=== PATIENT | female | born 1995 | race Caucasian/White ===

== ENCOUNTER 2017-03-13 18:54 | Outpatient (CLI) | payer OTHER ==
[2017-03-13 20:09] LABS: MICROSCOPIC INDICATED
[2017-03-13] MEDS ORDERED: NITROFURANTOIN (MACROBID) 100 MG CAPSULE PO ONE (21:30)
[2017-03-13] MEDS ORDERED: NITROFURANTOIN (MACROBID) 100 MG CAPSULE ONE (21:32)
== END 2017-03-13 21:50 | disposition home or self-care (01) ==
LOC: LDOP 18:54
PROVIDERS: ATTEND Obstetrics & Gynecology
DX: O26.893 Other specified pregnancy related conditions, third trimester (principal); O62.9 Abnormality of forces of labor, unspecified; Z3A.30 30 weeks gestation of pregnancy
CPT/HCPCS: 36415; 81001; 82731; 89060; Q0114

== ENCOUNTER 2017-05-03 12:54 | Inpatient (IN) | payer OTHER ==
[~2017-05-03] VITALS: Ht 170.2 cm; Wt 84.1 kg
[2017-05-03 13:07] VITALS: BP 124/73
[2017-05-03] MEDS ORDERED: LACTATED RINGERS 1,000 ML IV SCH (13:27)
[2017-05-03] MEDS ORDERED: OXYTOCIN 30U/ 0.9% NaCL 500ML 500 ML IV ONE (13:27)
[2017-05-03] MEDS ORDERED: FENTANYL/BUPIV./NS/PF 250 ML EPIDCONT SCH (13:27)
[2017-05-03] MEDS ORDERED: D5%-LACTATED RINGERS 1,000 ML IV SCH (13:27)
[2017-05-03] MEDS ORDERED: FENTANYL PF 100 MCG/2ML IV PRN (13:30)
[2017-05-03] MEDS ORDERED: LACTATED RINGERS 1,000 ML IVBOLUS PRN (13:30)
[2017-05-03] MEDS ORDERED: FENTANYL PF 100 MCG/2ML IVPush PRN (13:30)
[2017-05-03] MEDS ORDERED: TERBUTALINE 1 MG/ML, 1ML IVPush PRN (13:30)
[2017-05-03 13:48] LABS: BASOPHILS # (AUTO) 0.01 x10^3/uL (0-0.1); BASOPHILS % (AUTO) 0 % (0-1); EOSINOPHILS % (AUTO) 0 % (1-7); LYMPHOCYTES # (AUTO) 1.11 x10^3/uL (1-3.4); LYMPHOCYTES % (AUTO) 8 % (22-44); MD NO; MEAN CORPUSCULAR HEMOGLOBIN 32.1 pg (27.0-34.8); MEAN CORPUSCULAR HGB CONC 34.7 g/dL (32.4-35.8); MEAN CORPUSCULAR VOLUME 92.4 fL (80-100); MEAN PLATELET VOLUME 7.4 fL (7.4-10.4); MONOCYTES # (AUTO) 0.36 x10^3/uL (0.2-0.8); MONOCYTES % (AUTO) 3 % (2-9); NEUTROPHILS # (AUTO) 12.71 x10^3/uL (1.8-6.8); NEUTROPHILS % (AUTO) 90 % (42-75); PLATELET COUNT 238 x10^3/uL (130-400); RED BLOOD COUNT 4.61 x10^6/uL (3.82-5.3); RED CELL DISTRIBUTION WIDTH 13.5 % (9.6-15.2)
[2017-05-03] MEDS ORDERED: FENTANYL PF 100 MCG/2ML ONE (13:51)
[2017-05-03] MEDS ORDERED: NEWBORN KIT ONE (13:52)
[2017-05-03] MEDS ORDERED: LIDOCAINE 1%, 20ML ONE ×2 (13:52→13:53)
[2017-05-03] MEDS ORDERED: MISOPROSTOL 200 MCG TABLET ONE (13:52)
[2017-05-03] MEDS ORDERED: OXYTOCIN 30U/ 0.9% NaCL 500ML 500 ML ONE (13:52)
[2017-05-03] MEDS: OXYTOCIN 30U/ 0.9% NaCL 500ML 500 ML IV SCH ×2 (14:28→15:17)
[2017-05-03] MEDS ORDERED: OXYcodone IR 5MG TABLET PO PRN (15:00)
[2017-05-03] MEDS ORDERED: OXYcodone/APAP 5/325MG TABLET PO PRN (15:00)
[2017-05-03] MEDS ORDERED: MISOPROSTOL 200 MCG TABLET PR PRN (15:00)
[2017-05-03] MEDS ORDERED: ONDANSETRON 2MG/ML, 2ML IV PRN (15:00)
[2017-05-03] MEDS ORDERED: ACETAMINOPHEN 325 MG TABLET PO PRN (15:00)
[2017-05-03] MEDS ORDERED: IBUPROFEN 600 MG TABLET ONE (16:05)
[2017-05-03] MEDS: IBUPROFEN 600 MG TABLET PO PRN (16:07)
[2017-05-03 16:45] VITALS: BP 110/63
[2017-05-03 20:00] VITALS: BP 100/57
[2017-05-03 22:37] LABS: BASOPHILS # (AUTO) 0.03 x10^3/uL (0-0.1); BASOPHILS % (AUTO) 0 % (0-1); EOSINOPHILS # (AUTO) 0.01 x10^3/uL (0-0.4); EOSINOPHILS % (AUTO) 0 % (1-7); LYMPHOCYTES # (AUTO) 1.53 x10^3/uL (1-3.4); LYMPHOCYTES % (AUTO) 10 % (22-44); MD NO; MEAN CORPUSCULAR HEMOGLOBIN 31.8 pg (27.0-34.8); MEAN CORPUSCULAR HGB CONC 34.5 g/dL (32.4-35.8); MEAN CORPUSCULAR VOLUME 92.2 fL (80-100); MEAN PLATELET VOLUME 7.4 fL (7.4-10.4); MONOCYTES # (AUTO) 0.66 x10^3/uL (0.2-0.8); MONOCYTES % (AUTO) 4 % (2-9); NEUTROPHILS # (AUTO) 13.69 x10^3/uL (1.8-6.8); NEUTROPHILS % (AUTO) 86 % (42-75); PLATELET COUNT 245 x10^3/uL (130-400); RED BLOOD COUNT 4.18 x10^6/uL (3.82-5.3); RED CELL DISTRIBUTION WIDTH 13.5 % (9.6-15.2)
[2017-05-03 23:47] VITALS: BP 109/60
[2017-05-03] MEDS ORDERED: DIPH,PERTUSS(ACELL),TET VAC/PF NC IM-VACC ONE (23:52)
[2017-05-04] MEDS ORDERED: RHOGAM FROM BLOOD BANK 1 NOTE EA IM/IV ONE
[2017-05-04] MEDS ORDERED: DIPH,PERTUSS(ACELL),TET VAC/PF NC IM-VACC ONE
[2017-05-04 04:00] VITALS: BP 110/62
[2017-05-04] MEDS: IBUPROFEN 600 MG TABLET PO PRN ×2 (04:25→17:53)
[2017-05-04 08:24] VITALS: BP 111/65
[2017-05-04] MEDS: PRENATAL VIT/IRON/FA 1 EACH TABLET PO SCH (09:00)
[2017-05-04] MEDS: DOCUSATE 100 MG CAPSULE PO PRN (09:45)
[2017-05-04 19:30] VITALS: BP 105/66
[2017-05-05] MEDS: IBUPROFEN 600 MG TABLET PO PRN (04:40)
[2017-05-05] MEDS: PRENATAL VIT/IRON/FA 1 EACH TABLET PO SCH (07:48)
[2017-05-05] MEDS: DOCUSATE 100 MG CAPSULE PO PRN (07:48)
[2017-05-05 08:00] VITALS: BP 112/66
== END 2017-05-05 11:32 | disposition home or self-care (01) | DRG 775 ==
LOC: LDOP 12:54 → LDIP 13:27 → 2NW 17:03
PROVIDERS: ADMIT Obstetrics & Gynecology; ATTEND Obstetrics & Gynecology
PROC: 10E0XZZ Delivery of Products of Conception, External Approach (ICD-10-PCS; principal; 2017-05-03)
PROC: 0HQ9XZZ Repair Perineum Skin, External Approach (ICD-10-PCS; 2017-05-03)
PROC: 0UQMXZZ Repair Vulva, External Approach (ICD-10-PCS; 2017-05-03)
PROC: 30233S1 Transfusion of Nonautologous Globulin into Peripheral Vein, Percutaneous Approach (ICD-10-PCS; 2017-05-03)
DX: O70.0 First degree perineal laceration during delivery (principal); O71.82 Other specified trauma to perineum and vulva; Z37.0 Single live birth; Z3A.39 39 weeks gestation of pregnancy; Z23 Encounter for immunization
CPT/HCPCS: 36415; 85025; 85461; 86850; 86900; 90715; J2790; J3010; J2590; J7120